=== PATIENT | female | born 1955 | race Caucasian/White ===

== ENCOUNTER 2024-02-28 01:04 | Emergency (ER) | payer MEDICARE, OTHER ==
[2024-02-28] MEDS ORDERED: Sodium Chloride 0.9% 10 ML Syringe FLUSH PRN (01:06)
[2024-02-28] MEDS ORDERED: LORazepam 2 MG/ML SDV ONE (01:08)
[2024-02-28] MEDS ORDERED: methylPREDNISolone Sodium Succinate 125 MG/2 ML SDV ONE (01:09)
[2024-02-28 01:16] LABS: BASOPHILS ABSOLUTE AUTO 0.1 x10-3/uL (0.0-0.1); EOSINOPHILS ABSOLUTE AUTO 0.2 x10-3/uL (0.0-0.8); HEMATOCRIT 32.4 % (34.2-48.2); HEMOGLOBIN 9.8 g/dL (11.4-15.5); LYMPHOCYTES ABSOLUTE AUTO 2.5 x10-3/uL (1.0-4.4); LYMPHOCYTES PERCENT AUTO 24.2 % (18.4-52.1); MEAN CORPUSCULAR HGB CONC 30.3 g/dL (31.9-34.8); MEAN CORPUSCULAR VOLUME 72.6 fL (76.7-100.5); MEAN PLATELET VOLUME 8.6 fL (7.1-12.4); MONOCYTES ABSOLUTE AUTO 0.7 x10-3/uL (0.3-1.0); MONOCYTES PERCENT AUTO 6.3 % (4.4-15.7); NEUTROPHILS ABSOLUTE AUTO 6.9 x10-3/uL (1.5-6.3); NEUTROPHILS PERCENT AUTO 66.5 % (30.8-76.2); PLATELET COUNT,PLT 300 x10(3)uL (151-488); RED BLOOD CELL COUNT 4.46 x10(6)uL (3.60-5.20); RED CELL DISTRIBUTION WIDTH 18.5 % (12.3-16.5); WHITE BLOOD CELL COUNT,WBC 10.3 x10-3/uL (3.0-10.3)
[2024-02-28] MEDS: LORazepam 2 MG/ML SDV IVPUSH ONE (01:16)
[2024-02-28] MEDS: Morphine 4 MG/ML VIAL IVPUSH ONE (01:17)
[2024-02-28] MEDS: methylPREDNISolone Sodium Succinate 125 MG/2 ML SDV IVPUSH ONE (01:19)
[2024-02-28 01:20] LABS: BLOOD UREA NITROGEN,BUN 25 mg/dL (7-18); BUN/CREATININE RATIO 22.7 (9-20); CALCIUM 8.4 mg/dL (8.6-10.2); CARBON DIOXIDE,CO2 32 mmol/L (21-32); CHLORIDE,CL 95 mmol/L (100-110); CREATININE 1.1 mg/dL (0.55-1.02); ESTIMATED GFR 55 mL/min (>60); GLUCOSE RANDOM 225 mg/dL (80-116); POTASSIUM,K 3.6 mmol/L (3.5-5.3); SODIUM,NA 135 mmol/L (135-145)
[2024-02-28 01:26] LABS: A/G RATIO 0.9; ALANINE AMINOTRANSFERASE,ALT 28 U/L (12-36); ALBUMIN 3.6 g/dL (3.2-4.6); ALKALINE PHOSPHATASE 147 IU/L (56-112); ASPARTATE AMNIOTRANSFERASE,AST 31 IU/L (5-25); BILIRUBIN TOTAL 0.1 mg/dL (0.1-1.3); PROTEIN TOTAL,TP 7.5 g/dL (6.0-8.0)
[2024-02-28 01:27] LABS: BASE EXCESS VENOUS,POC 0 mmol/L (-2 - 3+); PCO2 VENOUS,POC 64 mmHg (41-51); PH VENOUS,POC 7.25 pH Units (7.32-7.43)
[2024-02-28 01:33] LABS: TROPONIN I 9.3 pg/mL (4.0-60.3)
[2024-02-28 01:35] LABS: LACTIC ACID 5.2 mmol/L (0.4-2.0)
[2024-02-28 01:37] LABS: INR 1.01 (1.00-1.24); PROTHROMBIN TIME 10.5 sec (9.0-11.1); PTT,PARTIAL THROMBOPLSTIN TIME 26.9 SECONDS (24.4-33.2)
[2024-02-28] MEDS: Albuterol/Ipratropium 3.0-0.5 MG/3 ML Neb Soln NEB ONE (01:57)
[2024-02-28] MEDS: Metolazone 2.5 MG Tab PO ONE (03:32)
[2024-02-28 03:40] LABS: APPEARANCE,URINE CLEAR (CLEAR); BILIRUBIN,URINE NEGATIVE (NEGATIVE); COLOR,URINE YELLOW (YELLOW); GLUCOSE,URINE 250 mg/dL (NORMAL); KETONES,URINE NEGATIVE (NEGATIVE); LEUKOCYTE ESTERASE,URINE NEGATIVE (NEGATIVE); NITRITE,URINE NEGATIVE (NEGATIVE); OCCULT BLOOD,URINE NEGATIVE (NEGATIVE); PROTEIN,URINE NEGATIVE (NEGATIVE); UROBILINOGEN,URINE NORMAL (NEGATIVE)
== END 2024-02-28 04:40 ==
LOC: FB.ED 01:04
DX: J44.1 Chronic obstructive pulmonary disease with (acute) exacerbation (principal); I48.91 Unspecified atrial fibrillation; I50.9 Heart failure, unspecified; K21.9 Gastro-esophageal reflux disease without esophagitis; E03.9 Hypothyroidism, unspecified; Z88.2 Allergy status to sulfonamides; Z88.8 Allergy status to other drugs, medicaments and biological substances; Z79.890 Hormone replacement therapy; Z79.899 Other long term (current) drug therapy
CPT/HCPCS: 36415; 51702; 71045; 80053; 81003; 83605; 83880; 84484; 85025; 85379; 85610; 85730; 93005; 93010; 96374; 96375; 99285; 99291-25; A9270-GY; J2060; J2270; J2919; J7620

== ENCOUNTER 2024-08-26 09:05 | Emergency (ER) | payer MEDICARE, OTHER ==
[2024-08-26 09:32] LABS: BASOPHILS ABSOLUTE AUTO 0.1 x10-3/uL (0.0-0.1); BASOPHILS PERCENT AUTO 0.9 % (0.2-1.5); EOSINOPHILS ABSOLUTE AUTO 0.1 x10-3/uL (0.0-0.8); EOSINOPHILS PERCENT AUTO 1.9 % (0.6-8.1); HEMATOCRIT 28.5 % (34.2-48.2); HEMOGLOBIN 8.9 g/dL (11.4-15.5); LYMPHOCYTES ABSOLUTE AUTO 1.1 x10-3/uL (1.0-4.4); LYMPHOCYTES PERCENT AUTO 14.4 % (18.4-52.1); MEAN CORPUSCULAR HEMOGLOBIN 21.4 pg (23.9-33.9); MEAN CORPUSCULAR HGB CONC 31.1 g/dL (31.9-34.8); MEAN CORPUSCULAR VOLUME 68.7 fL (76.7-100.5); MEAN PLATELET VOLUME 8.9 fL (7.1-12.4); MONOCYTES ABSOLUTE AUTO 0.5 x10-3/uL (0.3-1.0); NEUTROPHILS ABSOLUTE AUTO 5.9 x10-3/uL (1.5-6.3); NEUTROPHILS PERCENT AUTO 76.8 % (30.8-76.2); PLATELET COUNT,PLT 285 x10(3)uL (151-488); RED CELL DISTRIBUTION WIDTH 18.4 % (12.3-16.5); WHITE BLOOD CELL COUNT,WBC 7.7 x10-3/uL (3.0-10.3)
[2024-08-26 09:36] LABS: BLOOD UREA NITROGEN,BUN 33 mg/dL (7-18); CALCIUM 8.9 mg/dL (8.6-10.2); CARBON DIOXIDE,CO2 36 mmol/L (21-32); CHLORIDE,CL 93 mmol/L (100-110); ESTIMATED GFR 62 mL/min (>60); GLUCOSE RANDOM 122 mg/dL (80-116); POTASSIUM,K 4.3 mmol/L (3.5-5.3); SODIUM,NA 134 mmol/L (135-145)
[2024-08-26] MEDS: methylPREDNISolone Sodium Succinate 125 MG/2 ML SDV IVPUSH ONE (09:36)
[2024-08-26] MEDS: Albuterol/Ipratropium 3.0-0.5 MG/3 ML Neb Soln NEB ONE (09:36)
[2024-08-26 09:42] LABS: A/G RATIO 0.9; ALANINE AMINOTRANSFERASE,ALT 44 U/L (12-36); ALBUMIN 3.7 g/dL (3.2-4.6); ALKALINE PHOSPHATASE 170 IU/L (56-112); ASPARTATE AMNIOTRANSFERASE,AST 36 IU/L (5-25); BILIRUBIN TOTAL 0.5 mg/dL (0.1-1.3)
[2024-08-26 09:48] LABS: RED BLOOD CELL COUNT 4.14 x10(6)uL (3.60-5.20)
[2024-08-26 09:51] LABS: TROPONIN I 5.2 pg/mL (4.0-60.3)
[2024-08-26] MEDS ORDERED: LORazepam 2 MG/ML SDV IVPUSH ONE (10:06)
== END 2024-08-26 10:45 | disposition home or self-care (01) ==
LOC: FB.ED 09:05
DX: J44.1 Chronic obstructive pulmonary disease with (acute) exacerbation (principal); I48.20 Chronic atrial fibrillation, unspecified; D64.9 Anemia, unspecified; U07.0 Vaping-related disorder; Z88.2 Allergy status to sulfonamides; Z88.8 Allergy status to other drugs, medicaments and biological substances; Z79.899 Other long term (current) drug therapy; Z79.890 Hormone replacement therapy
CPT/HCPCS: 71045; 80053; 83880; 84484; 85025; 93005; 93010; 94640; 96374; 99284; 99285; A9270; J2919

== ENCOUNTER 2024-08-28 17:04 | Inpatient (IN) | payer MEDICARE, OTHER ==
[2024-08-28] MEDS ORDERED: Naloxone 0.4 MG/ML SDV IVPUSH PRN (17:08)
[2024-08-28] MEDS: Morphine 4 MG/ML VIAL IVPUSH ONE (17:42)
[2024-08-28] MEDS: methylPREDNISolone Sodium Succinate 125 MG/2 ML SDV IVPUSH ONE (17:46)
[2024-08-28] MEDS: Albuterol/Ipratropium 3.0-0.5 MG/3 ML Neb Soln NEB ONE (17:49)
[2024-08-28 17:50] LABS: HEMATOCRIT 27.9 % (34.2-48.2); HEMOGLOBIN 8.8 g/dL (11.4-15.5); MEAN CORPUSCULAR HEMOGLOBIN 21.7 pg (23.9-33.9); MEAN CORPUSCULAR HGB CONC 31.6 g/dL (31.9-34.8); MEAN CORPUSCULAR VOLUME 68.7 fL (76.7-100.5); MEAN PLATELET VOLUME 8.8 fL (7.1-12.4); PLATELET COUNT,PLT 308 x10(3)uL (151-488); RED BLOOD CELL COUNT 4.06 x10(6)uL (3.60-5.20); RED CELL DISTRIBUTION WIDTH 18.5 % (12.3-16.5); WHITE BLOOD CELL COUNT,WBC 9.3 x10-3/uL (3.0-10.3)
[2024-08-28 17:54] LABS: BLOOD UREA NITROGEN,BUN 46 mg/dL (7-18); CARBON DIOXIDE,CO2 35 mmol/L (21-32); CHLORIDE,CL 94 mmol/L (100-110); CREATININE 1.1 mg/dL (0.55-1.02); ESTIMATED GFR 55 mL/min (>60); GLUCOSE RANDOM 141 mg/dL (80-116); SODIUM,NA 134 mmol/L (135-145)
[2024-08-28 17:56] LABS: BASE EXCESS VENOUS,POC 3 mmol/L (-2 - 3+); PCO2 VENOUS,POC 46 mmHg (41-51)
[2024-08-28 18:02] LABS: ANISOCYTOSIS FEW; BAND PERCENT MAN 4 % (0-6); HYPOCHROMASIA FEW; LYMPHOCYTES PERCENT MAN 3 % (13-37); MICROCYTOSIS FEW; MONOCYTES PERCENT MAN 1 % (4-12); POIKILOCYTOSIS FEW; SEG NEUTROPHILS PERCENT MAN 92 % (46-82)
[2024-08-28 18:03] LABS: BUN/CREATININE RATIO 41.8 (9-20); LACTIC ACID 1.6 mmol/L (0.4-2.0)
[2024-08-28 18:05] LABS: ALANINE AMINOTRANSFERASE,ALT 48 U/L (12-36); ALBUMIN 3.8 g/dL (3.2-4.6); ALKALINE PHOSPHATASE 138 IU/L (56-112); ASPARTATE AMNIOTRANSFERASE,AST 41 IU/L (5-25); BILIRUBIN TOTAL 0.8 mg/dL (0.1-1.3); PROTEIN TOTAL,TP 7.8 g/dL (6.0-8.0)
[2024-08-28] MEDS: Furosemide 40 MG/4 ML VIAL IVPUSH ONE (18:32)
[2024-08-28] MEDS: Metolazone 5 MG Tab PO ONE (18:32)
[2024-08-29 09:55] LABS: BLOOD UREA NITROGEN,BUN 27 mg/dL (7-18); BUN/CREATININE RATIO 22.5 (9-20); CALCIUM 9.6 mg/dL (8.6-10.2); CREATININE 1.2 mg/dL (0.55-1.02); ESTIMATED GFR 50 mL/min (>60); GLUCOSE RANDOM 184 mg/dL (80-116); POTASSIUM,K 2.9 mmol/L (3.5-5.3); SODIUM,NA 136 mmol/L (135-145)
[2024-08-29 10:10] LABS: CARBON DIOXIDE,CO2 41 mmol/L (21-32); CHLORIDE,CL 89 mmol/L (100-110)
[2024-08-29] MEDS: Sotalol 80 MG Tab PO SCH (10:32)
[2024-08-29] MEDS: Furosemide 40 MG Tab PO ONE (10:32)
[2024-08-29] MEDS: Pantoprazole 20 MG Tab, Delayed Release PO SCH (10:33)
[2024-08-29] MEDS: Potassium Chloride 20 MEQ Tab.ER PO SCH (11:05)
[2024-08-29] MEDS ORDERED: [UNRECOGNIZED DRUG - MIXTURE] PRN (15:52)
[2024-08-29] MEDS ORDERED: [UNRECOGNIZED DRUG - MIXTURE] SCH (16:00)
[2024-08-29] MEDS ORDERED: Ondansetron 4 MG Tab.DIS PO PRN (16:21)
[2024-08-29] MEDS ORDERED: Albuterol 6.7 GM Inhaler INH PRN (16:21)
[2024-08-29] MEDS ORDERED: Cyclobenzaprine 10 MG Tab PO PRN (16:21)
[2024-08-29] MEDS ORDERED: Zolpidem 10 MG Tab PO PRN (16:21)
[2024-08-29] MEDS ORDERED: Diclofenac Sodium 1% Gel 100 GM Tube TOP PRN (16:21)
[2024-08-29] MEDS ORDERED: Phenazopyridine 95 MG Tab PO PRN (16:21)
[2024-08-29 16:59] LABS: MAGNESIUM 1.8 mg/dL (1.8-2.5); POTASSIUM,K 3.1 mmol/L (3.5-5.3)
[2024-08-29] MEDS: LORazepam 1 MG Tab PO PRN (17:00)
[2024-08-29] MEDS: Albuterol/Ipratropium 3.0-0.5 MG/3 ML Neb Soln NEB SCH (17:01)
[2024-08-29] MEDS: Pantoprazole 40 MG Tab.CR PO SCH (17:14)
[2024-08-29] MEDS: Fluticasone NASAL Spray 16 GM Bottle NASBOTH SCH (20:20)
[2024-08-29] MEDS: Metoprolol Tartrate 50 MG Tab PO SCH (20:21)
[2024-08-29] MEDS: amLODIPine 5 MG Tab PO SCH (20:22)
[2024-08-29] MEDS: Prazosin 1 MG Cap PO SCH (20:33)
[2024-08-29] MEDS ORDERED: methylPREDNISolone Sod Succ 60 MG in Sodium Chloride 0.9% 100 ML IV SCH (21:00)
[2024-08-29] MEDS: methylPREDNISolone Sodium Succinate 40 MG/1 ML SDV IVPUSH SCH (21:55)
[2024-08-30] MEDS: Levothyroxine 75 MCG Tab PO SCH (05:58)
[2024-08-30 06:40] LABS: HEMATOCRIT 32.6 % (34.2-48.2); HEMOGLOBIN 10.3 g/dL (11.4-15.5); MEAN CORPUSCULAR HEMOGLOBIN 22.4 pg (23.9-33.9); MEAN CORPUSCULAR HGB CONC 31.6 g/dL (31.9-34.8); MEAN CORPUSCULAR VOLUME 70.9 fL (76.7-100.5); MEAN PLATELET VOLUME 8.9 fL (7.1-12.4); PLATELET COUNT,PLT 304 x10(3)uL (151-488); RED CELL DISTRIBUTION WIDTH 19.3 % (12.3-16.5)
[2024-08-30 06:57] LABS: A/G RATIO 0.9; ALANINE AMINOTRANSFERASE,ALT 38 U/L (12-36); ALBUMIN 3.5 g/dL (3.2-4.6); ALKALINE PHOSPHATASE 122 IU/L (56-112); ASPARTATE AMNIOTRANSFERASE,AST 21 IU/L (5-25); BILIRUBIN TOTAL 0.6 mg/dL (0.1-1.3); BLOOD UREA NITROGEN,BUN 27 mg/dL (7-18); BUN/CREATININE RATIO 24.5 (9-20); CALCIUM 9.2 mg/dL (8.6-10.2); CHLORIDE,CL 91 mmol/L (100-110); CREATININE 1.1 mg/dL (0.55-1.02); EST CRCL DRUG DOSING (CG) 39.79 mL/min; ESTIMATED GFR 55 mL/min (>60); GLUCOSE RANDOM 185 mg/dL (80-116); POTASSIUM,K 3.2 mmol/L (3.5-5.3); PROTEIN TOTAL,TP 7.4 g/dL (6.0-8.0); SODIUM,NA 136 mmol/L (135-145)
[2024-08-30 07:02] LABS: CARBON DIOXIDE,CO2 40 mmol/L (21-32)
[2024-08-30 07:25] LABS: EOSINOPHILS PERCENT MAN 4 % (0-5); LYMPHOCYTES PERCENT MAN 11 % (13-37); MONOCYTES PERCENT MAN 2 % (4-12); SEG NEUTROPHILS PERCENT MAN 83 % (46-82)
[2024-08-30 07:26] LABS: ANISOCYTOSIS RARE; POIKILOCYTOSIS FEW
[2024-08-30] MEDS: Sodium Chloride 0.9% 10 ML Syringe FLUSH PRN (08:14)
[2024-08-30] MEDS: Furosemide 40 MG/4 ML VIAL IVPUSH SCH (08:15)
[2024-08-30] MEDS: Cyclobenzaprine 10 MG Tab PO SCH (08:19)
[2024-08-30] MEDS: Metoprolol Tartrate 25 MG Tab PO SCH (08:20)
[2024-08-30] MEDS: Sennosides/Docusate Sodium 50-8.6 MG Tab PO SCH (08:21)
[2024-08-30 09:54] LABS: BASE EXCESS ARTERIAL,POC 16 mmol/L (-2 - 3+); HCO3 ARTERIAL,POC 43 mmol/L (21-28); O2 SATURATION ARTERIAL,POC 97.1 % (94-98); PO2 ARTERIAL,POC 94 mmHg (83-108)
[2024-08-30] MEDS: Furosemide 40 MG Tab PO SCH (13:08)
[2024-08-30] MEDS: predniSONE 20 MG Tab PO SCH (16:58)
[2024-08-30] MEDS: oxyCODONE 5 MG Tab PO PRN (19:23)
[2024-08-30] MEDS: Fluticasone NASAL Spray 16 GM Bottle NASBOTH SCH (21:22)
[2024-08-31 06:47] LABS: HEMATOCRIT 32.8 % (34.2-48.2); HEMOGLOBIN 10.4 g/dL (11.4-15.5); MEAN CORPUSCULAR HEMOGLOBIN 21.4 pg (23.9-33.9); MEAN CORPUSCULAR HGB CONC 31.8 g/dL (31.9-34.8); MEAN CORPUSCULAR VOLUME 67.2 fL (76.7-100.5); MEAN PLATELET VOLUME 8.8 fL (7.1-12.4); PLATELET COUNT,PLT 372 x10(3)uL (151-488); RED BLOOD CELL COUNT 4.88 x10(6)uL (3.60-5.20); RED CELL DISTRIBUTION WIDTH 18.4 % (12.3-16.5); WHITE BLOOD CELL COUNT,WBC 17.2 x10-3/uL (3.0-10.3)
[2024-08-31 06:58] LABS: A/G RATIO 0.9; ALANINE AMINOTRANSFERASE,ALT 28 U/L (12-36); ALBUMIN 3.3 g/dL (3.2-4.6); ALKALINE PHOSPHATASE 110 IU/L (56-112); ASPARTATE AMNIOTRANSFERASE,AST 12 IU/L (5-25); BILIRUBIN TOTAL 0.6 mg/dL (0.1-1.3); BLOOD UREA NITROGEN,BUN 29 mg/dL (7-18); BUN/CREATININE RATIO 32.2 (9-20); CALCIUM 9.2 mg/dL (8.6-10.2); CHLORIDE,CL 94 mmol/L (100-110); CREATININE 0.9 mg/dL (0.55-1.02); EST CRCL DRUG DOSING (CG) 48.63 mL/min; ESTIMATED GFR 71 mL/min (>60); GLUCOSE RANDOM 133 mg/dL (80-116); POTASSIUM,K 3.3 mmol/L (3.5-5.3); SODIUM,NA 137 mmol/L (135-145)
[2024-08-31 07:02] LABS: CARBON DIOXIDE,CO2 42 mmol/L (21-32)
[2024-08-31 07:21] LABS: LYMPHOCYTES PERCENT MAN 1 % (13-37); MONOCYTES PERCENT MAN 6 % (4-12); POIKILOCYTOSIS FEW; SEG NEUTROPHILS PERCENT MAN 93 % (46-82); TARGET CELLS RARE
[2024-08-31 07:22] LABS: OVALOCYTES RARE
[2024-08-31] MEDS: Polyethylene Glycol 3350 Powder 17 GM Packet PO PRN (09:08)
== END 2024-08-31 14:45 | disposition home health service (06) | DRG 314 ==
LOC: FB.ED 17:04 → FB.MS 08-29 14:21
PROVIDERS: ADMIT Internal Medicine; ATTEND Family Medicine
PROC: 4A033R1 Measurement of Arterial Saturation, Peripheral, Percutaneous Approach (ICD-10-PCS; principal; 2024-08-30)
DX: I27.20 Pulmonary hypertension, unspecified (principal); J96.21 Acute and chronic respiratory failure with hypoxia; E87.1 Hypo-osmolality and hyponatremia; J44.1 Chronic obstructive pulmonary disease with (acute) exacerbation; I48.20 Chronic atrial fibrillation, unspecified; U07.0 Vaping-related disorder; D64.9 Anemia, unspecified; Z51.5 Encounter for palliative care; Z79.890 Hormone replacement therapy; Z79.01 Long term (current) use of anticoagulants; K21.9 Gastro-esophageal reflux disease without esophagitis; F41.9 Anxiety disorder, unspecified; F32.A Depression, unspecified; E87.6 Hypokalemia; I10 Essential (primary) hypertension; D50.9 Iron deficiency anemia, unspecified; I07.1 Rheumatic tricuspid insufficiency; Z88.2 Allergy status to sulfonamides; Z88.8 Allergy status to other drugs, medicaments and biological substances; Z79.899 Other long term (current) drug therapy; Z79.2 Long term (current) use of antibiotics; Z79.52 Long term (current) use of systemic steroids; Z79.51 Long term (current) use of inhaled steroids; I25.2 Old myocardial infarction; Z99.81 Dependence on supplemental oxygen
CPT/HCPCS: 36415 ×2; 71045; 80048; 80053; 83605; 83880 ×2; 84484; 85025; 93005; 99285; A9270 ×7; J1938; J2270; J2919; 82803; 83735; 84132; 93010; 93306; 94150; 94640; 97161-GP; 99223; 99232; 99239; J7512; U0002

== ENCOUNTER 2024-12-04 09:12 | Emergency (ER) | payer MEDICARE ==
[2024-12-04 10:07] LABS: BLOOD UREA NITROGEN,BUN 19 mg/dL (7-18); CARBON DIOXIDE,CO2 33 mmol/L (21-32); CHLORIDE,CL 99 mmol/L (100-110); CREATININE 0.8 mg/dL (0.55-1.02); EST CRCL DRUG DOSING (CG) 53.97 mL/min; ESTIMATED GFR 81 mL/min (>60); GLUCOSE RANDOM 123 mg/dL (80-116); POTASSIUM,K 3.9 mmol/L (3.5-5.3); SODIUM,NA 138 mmol/L (135-145)
[2024-12-04 10:08] LABS: MEAN PLATELET VOLUME 9.0 fL (7.1-12.4); PLATELET COUNT,PLT 288 x10(3)uL (151-488); RED BLOOD CELL COUNT 4.45 x10(6)uL (3.60-5.20); RED CELL DISTRIBUTION WIDTH 24.5 % (12.3-16.5); WHITE BLOOD CELL COUNT,WBC 6.4 x10-3/uL (3.0-10.3)
[2024-12-04 10:13] LABS: A/G RATIO 1.0; ALANINE AMINOTRANSFERASE,ALT 17 U/L (12-36); ASPARTATE AMNIOTRANSFERASE,AST 13 IU/L (5-25); BILIRUBIN TOTAL 0.5 mg/dL (0.1-1.3); PROTEIN TOTAL,TP 7.8 g/dL (6.0-8.0)
[2024-12-04 10:21] LABS: AMPHETAMINES SCREEN, URINE NEGATIVE (NEGATIVE); METHADONE SCREEN, URINE NEGATIVE (NEGATIVE); METHAMPHETAMINE SCREEN, URINE NEGATIVE (NEGATIVE); OXYCODONE SCREEN,URINE NEGATIVE (NEGATIVE)
[2024-12-04 10:22] LABS: BUPRENORPHINE SCREEN,URINE NEGATIVE (NEGATIVE)
[2024-12-04 10:23] LABS: TSH ULTRASENSITIVE 2.78 IU/mL (0.36-3.74)
[2024-12-04 10:25] LABS: GLUCOSE,URINE NORMAL (NORMAL); OCCULT BLOOD,URINE NEGATIVE (NEGATIVE)
[2024-12-04 10:37] LABS: APPEARANCE,URINE CLEAR (CLEAR)
[2024-12-04 10:40] LABS: ETHANOL BLOOD MEDICAL < 0.03 % (<0.03)
[2024-12-04 10:49] LABS: EOSINOPHILS PERCENT MAN 2 % (0-5); LYMPHOCYTES PERCENT MAN 17 % (13-37); MONOCYTES PERCENT MAN 3 % (4-12); SEG NEUTROPHILS PERCENT MAN 78 % (46-82)
[2024-12-04] MEDS: Acetaminophen/oxyCODONE 325-5 MG Tab PO STA (14:06)
[2024-12-06 08:57] LABS: THYROXINE FREE 1.3 ng/dL (0.9-1.7)
== END 2024-12-04 16:25 | disposition home or self-care (01) ==
LOC: FB.ED 09:12
DX: F41.1 Generalized anxiety disorder (principal); F32.A Depression, unspecified; J44.9 Chronic obstructive pulmonary disease, unspecified; I10 Essential (primary) hypertension; I48.91 Unspecified atrial fibrillation; Z87.891 Personal history of nicotine dependence; Z79.899 Other long term (current) drug therapy; Z79.890 Hormone replacement therapy; Z88.2 Allergy status to sulfonamides; Z88.8 Allergy status to other drugs, medicaments and biological substances
CPT/HCPCS: 80053; 80143; 80179; 80307; 81003; 84439; 84443; 85025; 99285; A9270; 36415